=== PATIENT | female | born 1995 | race Caucasian/White ===

== ENCOUNTER 2021-12-16 18:46 | Emergency (ER) | payer SELFPAY ==
[2021-12-16 19:40] LABS: HEMOGLOBIN 13.1 gm/dl (12.3-15.3); RED BLOOD COUNT 4.28 M/UL (4.00-5.10); WHITE BLOOD COUNT 6.8 K/UL (4.5-11.0)
[2021-12-16] MEDS ORDERED: IBUPROFEN800 MG PO (22:03)
[2021-12-16] MEDS ORDERED: CEPHALEXIN500 M1 PO (22:03)
[2021-12-16] MEDS ORDERED: MUCINEX DM ER1 EACH PO (22:03)
== END 2021-12-16 22:37 | disposition home or self-care (01) ==
LOC: ER1 18:46
PROVIDERS: Physician Assistant
DX: U07.1 COVID-19 (principal); J40 Bronchitis, not specified as acute or chronic; E86.0 Dehydration
CPT/HCPCS: 0240U; 71045; 80053; 81001; 84703; 85025; 87081; 87086; 87880; 96374; 96375; 99284; J1200; J1885; J2765